=== PATIENT | male | born 1985 | race Caucasian/White ===

== ENCOUNTER 2022-09-22 14:01 | Inpatient (IN) | payer MEDICAID, OTHER ==
[~2022-09-22] VITALS: Ht 165.1 cm; Wt 77.1 kg
[2022-09-22 14:02] VITALS: BP 112/80
--- NOTE | 2022-09-22 14:02 | NUR ---
pt placed in bed 6 at 13:56 by [facility]
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
--- NOTE | 2022-09-22 14:21 | NUR ---
Patient being evaluated by DR TURNER at bedside.
[2022-09-22] MEDS ORDERED: LORazepam 2 MG/ML VIAL IVP ONE ×2 (14:35→18:20)
--- NOTE | 2022-09-22 14:40 | NUR ---
LAB AT BEDSIDE.
[2022-09-22] MEDS: NACL 0.9% 1,000 ML IV SCH ×3 (14:46→19:41)
[2022-09-22 14:48] LABS: BASOPHILS % (AUTO) 0.2 % (0.0-2.0); EOSINOPHILS % (AUTO) 0.1 % (0.0-4.0); HEMATOCRIT 44.7 % (36-52); HEMOGLOBIN 15.1 g/dL (12.0-18.0); LYMPHOCYTES # (AUTO) 0.6 K/uL (2.0-11.5); LYMPHOCYTES % (AUTO) 4.5 % (20.5-51.1); MEAN CORPUSCULAR HEMOGLOBIN 29 pg (27-31); MEAN CORPUSCULAR HGB CONC 34 g/dL (33-37); MEAN CORPUSCULAR VOLUME 85.9 fL (80-94); MONOCYTES # (AUTO) 0.5 K/uL (0.8-1.0); MONOCYTES % (AUTO) 3.7 % (1.7-9.3); NEUTROPHILS # (AUTO) 12.1 K/uL (1.8-7.7); NEUTROPHILS % (AUTO) 91.5 % (42.2-75.2); PLATELET COUNT (AUTO) 297 K/uL (140-450); RED CELL DISTRIBUTION WIDTH 12.9 % (11.6-13.7); WHITE BLOOD COUNT (AUTO) 13.2 K/uL (4.8-10.8)
--- NOTE | 2022-09-22 14:51 | NUR ---
X-Ray at bedside.
[2022-09-22 15:17] LABS: ANION GAP 11.2 (8-16); ASPARTATE AMINOTRANSFERASE 56 U/L (15-37); CARBON DIOXIDE 27.6 mmol/L (21-32); CHLORIDE 96 mmol/L (98-107); CREATININE 0.8 mg/dL (0.6-1.3); GFR ARICAN-AMERICAN 141 mL/min (>90); GLUCOSE 102 mg/dL (74-106); LIPASE 85 U/L (73-393); POTASSIUM 4.8 mmol/L (3.5-5.1); SODIUM SERUM 130 mmol/L (136-145); TOTAL BILIRUBIN 1.1 mg/dL (0.0-1.0); UREA NITROGEN, BLOOD 13 mg/dL (7-18)
[2022-09-22 15:25] LABS: ACETAMINOPHEN < 0.5 ug/ml (10-30); SALICYLATE < 2.8 mg/dL (2.8-20.0)
--- NOTE | 2022-09-22 16:21 | NUR ---
PATIENT TAKEN TO CT VIA GURNEY.
[2022-09-22] MEDS ORDERED: HALOPERIDOL IM 5 MG/ML VIAL ONE (16:34)
[2022-09-22] MEDS ORDERED: diphenhydrAMINE 50 MG/ML VIAL ONE (16:34)
[2022-09-22] MEDS ORDERED: diphenhydrAMINE 50 MG/ML VIAL IVP ONE (16:35)
[2022-09-22] MEDS ORDERED: LORazepam 2 MG/ML VIAL IM/IVP ONE (16:35)
[2022-09-22] MEDS ORDERED: HALOPERIDOL IM 5 MG/ML VIAL IM ONE (16:35)
[2022-09-22] MEDS ORDERED: LORazepam 2 MG/ML VIAL ONE (16:35)
--- NOTE | 2022-09-22 16:52 | NUR ---
PATIENT RETURNED FROM CT.
--- NOTE | 2022-09-22 16:57 | NUR ---
PT COMBATIVE AND AGITATED IN CT MEDICATED PER ORDER. REMAINS STACH ON MONITOR. IN [address] DR TURNER AWARE
[2022-09-22] MEDS ORDERED: NIAC500T30 GT (17:16)
[2022-09-22] MEDS ORDERED: LACT-103 PO (17:16)
[2022-09-22] MEDS ORDERED: VIT500LI PO (17:16)
[2022-09-22] MEDS ORDERED: APIX5TAB4 GT (17:16)
[2022-09-22] MEDS ORDERED: TAMS0.4C96 PO (17:16)
[2022-09-22] MEDS ORDERED: SCOP0.333 TP (17:16)
[2022-09-22] MEDS ORDERED: HYDR-5080 PO (17:16)
[2022-09-22] MEDS ORDERED: FERR75LI22 PO (17:16)
[2022-09-22] MEDS ORDERED: KEP500L GT (17:16)
[2022-09-22] MEDS ORDERED: MULT-2253 GT (17:16)
[2022-09-22] MEDS ORDERED: LOSA100T2 PO (17:16)
[2022-09-22 17:25] LABS: BILIRUBIN,URINE NEGATIVE (NEGATIVE); BLOOD, URINE TRACE-I (NEGATIVE); COLOR,URINE YELLOW (YELLOW); LEUKOCYTE ESTERASE ,URINE TRACE (NEGATIVE); NITRITE, URINE NEGATIVE (NEGATIVE); PH,URINE 6.5 (5.0-9.0); UGLUCOSE NEGATIVE (NEGATIVE)
[2022-09-22 17:26] LABS: APPEARANCE,URINE HAZY (CLEAR)
[2022-09-22] MEDS ORDERED: NACL 0.9% 1,000 ML IV SCH (17:40)
[2022-09-22 17:47] LABS: RBC,URINE 0-5 /HPF (0-5)
[2022-09-22 17:57] LABS: BARBITURATE, URINE NEGATIVE ng/ml (NEG <=200); BENZODIAZEPINE, URINE NEGATIVE ng/mL (NEG <=200)
[2022-09-22 17:58] LABS: CANNABINOID, URINE NEGATIVE ng/mL (NEG <=50); COCAINE, URINE NEGATIVE ng/mL (NEG <=300); OPIATE, URINE NEGATIVE ng/mL (NEG <=2000); PHENCYCLIDINE SCREEN,URINE NEGATIVE ng/mL (NEG <=25)
--- NOTE | 2022-09-22 18:19 | NUR ---
PT RESTING IN [facility] REMAINS STACH ON MONITOR. SAFETY MAINTAINED
--- NOTE | 2022-09-22 18:32 | NUR ---
SWABBED AND SENT TO LAB
[2022-09-22] MEDS ORDERED: DOCUSATE SODIUM 100 MG GELCAP PO PRN (19:25)
[2022-09-22] MEDS ORDERED: ZOLPIDEM 5 MG TAB PO PRN (19:25)
[2022-09-22] MEDS ORDERED: guaiFENesin DM 200/20 MG-10 ML 10 ML UDC PO PRN (19:25)
[2022-09-22] MEDS ORDERED: HYDROcodone/APAP 7.5/325 MG 1 TAB PO PRN (19:25)
[2022-09-22] MEDS ORDERED: ONDANSETRON 4 MG/2 ML VIAL IM/IVP PRN (19:25)
--- NOTE | 2022-09-22 19:36 | NUR ---
SPOKE W/ DR BEVERLEY DAILEY TO DO ROUTINE EEG [facility] WAS CONTACTED AND LEFT VM FOR SCHED PENDING CALL BACK FROM [facility]
[2022-09-22] MEDS ORDERED: levoFLOXacin 750 MG TAB PO SCH (19:40)
[2022-09-22 20:09] LABS: FREE T4 (FREE THYROXINE) 0.83 ng/dL (0.76-1.46); MAGNESIUM 1.4 mg/dL (1.8-2.4); PHOSPHORUS 1.7 mg/dL (2.5-4.9); THYROID STIMULATING HORMONE 1.74 uIU/mL (0.34-3.74)
--- NOTE | 2022-09-22 20:31 | NUR ---
LAB AT BEDSIDE
[2022-09-22 20:55] VITALS: BP 108/49
--- NOTE | 2022-09-22 20:55 | NUR ---
RECEIVED REPORT FROM ER NURSE NAYLA FOR CONTINUITY OF CARE. PATIENT IS SEDATED AND UNAROUSABLE UPON ARRIVAL TO THE UNIT. PATIENT WAS MEDICATED WITH 3 DOSES OF ATIVAN, DOSE OF HALDOL AND BENADRYL A FEW HOURS BEFORE ARRIVING ON THE UNIT. IV IS A 20G RAC, RUNNING NS 150. PATIENT IS LYING SUPINE, ASLEEP. BED IS IN LOWEST POSITION, WHEELS LOCKED, CALL LIGHT IN PLACE. WILL CONTINUE TO OBSERVE PATIENT.
[2022-09-22] MEDS: levETIRAcetam 500 MG TAB PO SCH (22:00)
--- NOTE | 2022-09-22 22:08 | NUR ---
PATIENT WAS MEDICATED WITH ATIVAN AND HALDOL IN ER PER ER NURSE NAYLA. UNABLE TO WAKE UP PATIENT. PATIENT'S BREATHING IS NORMAL WITH SYMMETRICAL RISE AND FALL OF CHEST. PATIENT HAS A 101.1 DEGREE FEVER. APPLIED ICE PACKS TO PATIENT. PATIENT IS STILL SLEEPING; UNABLE TO WAKE PATIENT UP TO ADMINISTER TYLENOL FOR FEVER OR 2100 K[address]A. WILL CONTINUE TO OBSERVE PATIENT.
[2022-09-22 22:18] LABS: PROTHROMBIN TIME 10.4 secs (10.8-13.4)
[2022-09-23] VITALS: BP 102/43
--- NOTE | 2022-09-23 01:47 | NUR ---
PATIENT'S FEVER HAS GONE DOWN TO 100.3 FROM 101.1. ATTEMPTED TO WAKE PATIENT AGAIN WITH NO SUCCESS. APPLIED NEW ICE PACK TO PATIENT; COVERS ARE STILL OFF OF PATIENT. BREATHING IS NORMAL WITH SYMMETRICAL RISE AND FALL OF CHEST. WOMAN CALLED STATING THAT SHE WAS PATIENT'S AT 0130. SAID HER NAME WAS RENEA BROOKS AND PROVIDED ME WITH A PHONE NUMBER OF [phone]. MS. BROOKS WAS UNABLE TO PROVIDE PAST MEDICAL HISTORY, BUT DID INFORM ME THAT HER AND THE PATIENT WERE HOMELESS; LIVING ON THE [place] OF [place]. INFORMED HER THAT THE PATIENT WAS SLEEPING, BUT I WOULD LET HIM KNOW SHE CALLED WHEN HE WAKES UP. SHE THANKED ME AND HUNG UP. WILL CONTINUE TO OBSERVE PATIENT.
[2022-09-23] MEDS: NACL 0.9% 1,000 ML IV SCH ×4 (02:05→22:10)
[2022-09-23 04:00] VITALS: BP 107/62
--- NOTE | 2022-09-23 06:00 | NUR ---
PATIENT HAD WET HIMSELF AND THE BED. PATIENT WAS CLEANED AND GOWN WAS PLACED ON PATIENT. PATIENT REMAINS UNAROUSABLE; CURSING AND YELLING WHEN HE IS MOVED, BUT REMAINING ASLEEP. WAS INFORMED BY FACILITY REHAB DIRECTOR THAT PATIENT REFUSED MORNING LABS. WILL CONTINUE TO OBSERVE PATIENT.
--- NOTE | 2022-09-23 07:15 | NUR ---
ENDORSED TO DAY SHIFT NURSE CESAR FOR CONTINUITY OF CARE. PATIENT IS STABLE.
[2022-09-23] MEDS: PANTOPRAZOLE 40 MG TABEC PO SCH (09:00)
[2022-09-23] MEDS: levETIRAcetam 500 MG TAB PO SCH ×2 (09:00→22:08)
[2022-09-23 09:15] LABS: RED BLOOD CELL COUNT(AUTO) 4.57 MIL/uL (4.20-6.10)
[2022-09-23 09:22] LABS: HEMATOCRIT 38.5 % (36-52); HEMOGLOBIN 13.2 g/dL (12.0-18.0); MEAN CORPUSCULAR HEMOGLOBIN 29 pg (27-31); MEAN CORPUSCULAR HGB CONC 34 g/dL (33-37); MEAN CORPUSCULAR VOLUME 84.1 fL (80-94); PLATELET COUNT (AUTO) 261 K/uL (140-450); RED CELL DISTRIBUTION WIDTH 13.1 % (11.6-13.7)
[2022-09-23 09:23] LABS: ANION GAP 11.7 (8-16); CARBON DIOXIDE 24.6 mmol/L (21-32); CREATININE 0.9 mg/dL (0.6-1.3); POTASSIUM 3.3 mmol/L (3.5-5.1)
[2022-09-23 10:21] LABS: WHITE BLOOD COUNT (AUTO) 25.3 K/uL (4.8-10.8)
[2022-09-23 10:22] LABS: LYMPHOCYTES % (MANUAL) 4 % (20-46); MONOCYTES % (MANUAL) 4 % (5-12)
--- NOTE | 2022-09-23 10:34 | NUR ---
PATIENT HAS BEEN SCREENED AND CATEGORIZED LOW NUTRITION RISK. PATIENT WILL BE SEEN WITHIN 7 DAYS OF ADMISSION. 09/29/[address]
[2022-09-23] MEDS ORDERED: LEVOFLOXACIN 750 MG/D5W PREMIX 150 ML IV ONE (10:45)
--- NOTE | 2022-09-23 11:10 | NUR ---
DC PLANNING ATTEMPTED TO MEET PT AT BEDSIDE HOWEVER, PT WOULD NOT WAKE TO NAME BEING CALLED. OUTREACHED TO PTS EMERGENCY CONTACT [facility] [phone] HOWEVER. NO ANSWER.
[2022-09-23] MEDS: LEVOFLOXACIN 750 MG/D5W PREMIX 150 ML IV SCH (11:38)
[2022-09-23 12:00] VITALS: BP 122/77
--- NOTE | 2022-09-23 14:06 | NUR ---
PATIENT SIGNIFICANT OTHER , RENEA, NOTIFICATION TO VISIT AT BEDSIDE INSTEAD OF IN PATIENT BED. SHE VERBALIZES "I WOULD LET OTHERS VISIT IN BED BECAUSE I HAVE A HEART.
[2022-09-23 16:00] VITALS: BP 105/72
[2022-09-23] MEDS: POTASSIUM CHLORIDE 10 MEQ TABER PO PRN (17:32)
[2022-09-23] MEDS: ACETAMINOPHEN 325 MG TAB PO PRN (17:32)
--- NOTE | 2022-09-23 17:33 | NUR ---
PATIENT VERBALIZES HE WANTS TO LEAVE. DISCUSSION ABOUT POSSIBLE INFECTION TREATMENT AND PRESENTATION OF PAPERWORK TO PATIENT FOR LEAVING AGAINST MEDICAL ADVICE.
[2022-09-23] MEDS ORDERED: levoFLOXacin 750 MG TAB PO SCH (21:00)
[2022-09-24] MEDS: NACL 0.9% 1,000 ML IV SCH ×3 (04:17→18:05)
[2022-09-24 06:14] LABS: BASOPHILS % (AUTO) 0.1 % (0.0-2.0); EOSINOPHILS # (AUTO) 0.1 K/uL (0-0.4); EOSINOPHILS % (AUTO) 0.3 % (0.0-4.0); HEMATOCRIT 36.4 % (36-52); HEMOGLOBIN 12.6 g/dL (12.0-18.0); LYMPHOCYTES # (AUTO) 0.5 K/uL (2.0-11.5); LYMPHOCYTES % (AUTO) 2.1 % (20.5-51.1); MEAN CORPUSCULAR HEMOGLOBIN 29 pg (27-31); MEAN CORPUSCULAR HGB CONC 35 g/dL (33-37); MEAN CORPUSCULAR VOLUME 83.4 fL (80-94); MONOCYTES # (AUTO) 1.1 K/uL (0.8-1.0); NEUTROPHILS # (AUTO) 19.9 K/uL (1.8-7.7); NEUTROPHILS % (AUTO) 92.5 % (42.2-75.2); PLATELET COUNT (AUTO) 238 K/uL (140-450); RED BLOOD CELL COUNT(AUTO) 4.37 MIL/uL (4.20-6.10); RED CELL DISTRIBUTION WIDTH 12.8 % (11.6-13.7); WHITE BLOOD COUNT (AUTO) 21.6 K/uL (4.8-10.8)
[2022-09-24 06:18] LABS: ANION GAP 10.6 (8-16); CARBON DIOXIDE 25.1 mmol/L (21-32); CREATININE 0.9 mg/dL (0.6-1.3); POTASSIUM 3.7 mmol/L (3.5-5.1)
[2022-09-24 08:00] VITALS: BP 116/66
[2022-09-24 08:08] LABS: T4 (THYROXINE) 5.7 ug/dL (4.5-12.0)
[2022-09-24] MEDS: levETIRAcetam 500 MG TAB PO SCH ×2 (08:49→20:59)
[2022-09-24] MEDS: PANTOPRAZOLE 40 MG TABEC PO SCH (08:49)
[2022-09-24] MEDS: LEVOFLOXACIN 750 MG/D5W PREMIX 150 ML IV SCH (11:48)
[2022-09-24 12:00] VITALS: BP 93/51
[2022-09-24] MEDS: MUPIROCIN CA NASAL 2% 1GM TUBE NS SCH (14:05)
[2022-09-24] MEDS: CHLORHEXADINE GLUC 2% CLOTH TP SCH (14:05)
[2022-09-24 16:00] VITALS: BP 122/83
[2022-09-24] MEDS ORDERED: VANCOMYCIN PER PHARMACY MC PRN (17:25)
[2022-09-24] MEDS ORDERED: VANCOMYCIN HCL 1,250 MG in DEXTROSE 5% 250 ML IV SCH (20:00)
[2022-09-24] MEDS ORDERED: VANCOMYCIN 1,000 MG VIAL ONE (20:00)
[2022-09-24] MEDS ORDERED: VANCOMYCIN 500 MG VIAL ONE (20:01)
[2022-09-24] MEDS ORDERED: PIPERACILLIN/TAZOBACTAM 3.375 GM in DEXTROSE 5% 50 ML IV SCH (21:00)
[2022-09-24 21:37] VITALS: BP 112/83
[2022-09-25] MEDS: LORazepam 2 MG/ML VIAL IVP PRN ×3 (00:38→21:14)
[2022-09-25 00:43] VITALS: BP 135/92
[2022-09-25] MEDS: NACL 0.9% 1,000 ML IV SCH ×4 (00:46→20:38)
[2022-09-25 04:28] VITALS: BP 131/79
[2022-09-25 06:47] LABS: BASOPHILS % (AUTO) 0.1 % (0.0-2.0); EOSINOPHILS # (AUTO) 0.1 K/uL (0-0.4); EOSINOPHILS % (AUTO) 0.5 % (0.0-4.0); HEMATOCRIT 36.4 % (36-52); HEMOGLOBIN 12.5 g/dL (12.0-18.0); LYMPHOCYTES # (AUTO) 0.7 K/uL (2.0-11.5); LYMPHOCYTES % (AUTO) 3.6 % (20.5-51.1); MEAN CORPUSCULAR HEMOGLOBIN 29 pg (27-31); MEAN CORPUSCULAR HGB CONC 34 g/dL (33-37); MEAN CORPUSCULAR VOLUME 83.2 fL (80-94); MONOCYTES # (AUTO) 1.5 K/uL (0.8-1.0); MONOCYTES % (AUTO) 7.4 % (1.7-9.3); NEUTROPHILS # (AUTO) 17.4 K/uL (1.8-7.7); NEUTROPHILS % (AUTO) 88.4 % (42.2-75.2); PLATELET COUNT (AUTO) 261 K/uL (140-450); RED BLOOD CELL COUNT(AUTO) 4.38 MIL/uL (4.20-6.10); WHITE BLOOD COUNT (AUTO) 19.7 K/uL (4.8-10.8)
[2022-09-25 06:50] LABS: ANION GAP 9.2 (8-16); CARBON DIOXIDE 28.1 mmol/L (21-32); CREATININE 0.9 mg/dL (0.6-1.3); POTASSIUM 3.3 mmol/L (3.5-5.1)
--- NOTE | 2022-09-25 07:42 | NUR ---
NURSES NOTE PATIENT A/OX4 , RECEIVED AT BED SIDE , BED REST , VSS , SINUS RHYTHM ON MONITOR , ON IV FLUID 50CC/H NO COMPLAIN AT THIS TIME , SKIN INTACT SEE SKIN ASSESSMENT , EDUCTION GIVEN ABOUT MEDS , ON REGULAR DIET PAIN MEDS , CARE PLAN , SAFETY ON PLACE , SIDE RAILS UP X3 , BED IN LOWER POSITION , CALL LIGHT WITHIN REACH . STILL UNDER OBSERVE .
[2022-09-25] MEDS: PANTOPRAZOLE 40 MG TABEC PO SCH (08:14)
[2022-09-25] MEDS: levETIRAcetam 500 MG TAB PO SCH ×2 (08:14→20:42)
[2022-09-25 08:45] VITALS: BP 107/57
[2022-09-25] MEDS ORDERED: VANCOMYCIN HCL 1.25 GM in DEXTROSE 5% 250 ML IV SCH (09:00)
[2022-09-25] MEDS: VANCOMYCIN 1.25GM PREMIX 250 ML IV SCH ×2 (09:21→20:39)
[2022-09-25] MEDS: ACETAMINOPHEN 325 MG TAB PO PRN (10:14)
[2022-09-25] MEDS: POTASSIUM CHLORIDE 10 MEQ TABER PO PRN (10:54)
[2022-09-25 12:56] VITALS: BP 116/60
[2022-09-25] MEDS: MUPIROCIN CA NASAL 2% 1GM TUBE NS SCH (14:00)
[2022-09-25] MEDS: CHLORHEXADINE GLUC 2% CLOTH TP SCH (14:00)
--- NOTE | 2022-09-25 15:30 | NUR ---
NURSES NOTE PATIENT REFUSED MONITOR , PT TOKE IT OF AND THOUGHT ON FLOOR
--- NOTE | 2022-09-25 16:00 | NUR ---
NURSES NOTE PATIENT A/OX4 , VSS , STILL ON IV FLUID 50CCN/S0.9% , ON REGULAR DIET , INCONTINENT , CONDOM CATH REMOVED BY PATIENT , SAFETY PROACTION ON PLACE , SEIZURE PROACTION ON , NO NEW FOR HIM , LEFT LEG CELLULITIS STILL UNDER OBSERVE .
[2022-09-25 17:00] VITALS: BP 113/68
--- NOTE | 2022-09-25 18:59 | NUR ---
SHIFT REPORT GIVEN TO DANTE NOBLE ALL HIS QUESTION ANSWER .
--- NOTE | 2022-09-25 20:45 | NUR ---
PT WAS GIVEN AMBIEN PER PT REQUEST. PT HAD NO WATER SO NURSE HELD ONTO MEDS IN CUP (SPAT OUT INTO CUP BY PT), RETRIEVED WATER, THEN ADMINISTERED MEDS W WATER.
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
[2022-09-26] MEDS: LORazepam 2 MG/ML VIAL IVP PRN (02:31)
--- NOTE | 2022-09-26 02:36 | NUR ---
PT INCONTINENT OF URINE. PT BED AND GOWN CHANGED. PT GIVEN URINAL. PT GIVEN INSTRUCTIONS ON USING CALL LIGHT FOR NURSE TO EMPTY URINAL. PT REQUESTING AMBIEN, BUT WAS REMINDED HE ALREADY RECEIVED A DOSE. PT THEN GIVEN ATIVAN TO CALM.
[2022-09-26] MEDS: NACL 0.9% 1,000 ML IV SCH ×2 (03:25→10:05)
[2022-09-26 06:25] LABS: BASOPHILS % (AUTO) 0.2 % (0.0-2.0); EOSINOPHILS # (AUTO) 0.1 K/uL (0-0.4); EOSINOPHILS % (AUTO) 0.8 % (0.0-4.0); HEMATOCRIT 39.2 % (36-52); HEMOGLOBIN 13.1 g/dL (12.0-18.0); LYMPHOCYTES # (AUTO) 1.4 K/uL (2.0-11.5); LYMPHOCYTES % (AUTO) 8.4 % (20.5-51.1); MEAN CORPUSCULAR HEMOGLOBIN 29 pg (27-31); MEAN CORPUSCULAR HGB CONC 33 g/dL (33-37); MEAN CORPUSCULAR VOLUME 85.9 fL (80-94); MONOCYTES # (AUTO) 1.7 K/uL (0.8-1.0); NEUTROPHILS # (AUTO) 13.5 K/uL (1.8-7.7); NEUTROPHILS % (AUTO) 80.6 % (42.2-75.2); PLATELET COUNT (AUTO) 309 K/uL (140-450); RED BLOOD CELL COUNT(AUTO) 4.57 MIL/uL (4.20-6.10); RED CELL DISTRIBUTION WIDTH 13.3 % (11.6-13.7); WHITE BLOOD COUNT (AUTO) 16.8 K/uL (4.8-10.8)
[2022-09-26 06:49] LABS: ANION GAP 9.7 (8-16); CARBON DIOXIDE 25.8 mmol/L (21-32); CREATININE 0.8 mg/dL (0.6-1.3); POTASSIUM 3.5 mmol/L (3.5-5.1)
[2022-09-26 08:00] VITALS: BP 102/38
[2022-09-26] MEDS: PANTOPRAZOLE 40 MG TABEC PO SCH (08:56)
[2022-09-26] MEDS: levETIRAcetam 500 MG TAB PO SCH (08:57)
[2022-09-26] MEDS: VANCOMYCIN 1.25GM PREMIX 250 ML IV SCH (08:57)
[2022-09-26] MEDS ORDERED: MUPI2CRE22 NS (10:30)
[2022-09-26] MEDS ORDERED: KEP500 PO (10:30)
[2022-09-26] MEDS ORDERED: CHLO118S2 TP (10:30)
[2022-09-26] MEDS ORDERED: CIPR500T4 PO (10:30)
[2022-09-26] MEDS ORDERED: VANCOMYCIN 1.25GM PREMIX 250 ML IV SCH (17:00)
== END 2022-09-26 14:50 | disposition home or self-care (01) | DRG 351 ==
LOC: MED 14:01 → MTU 18:54
PROVIDERS: ADMIT Family Medicine; ATTEND Family Medicine
DX: M62.82 Rhabdomyolysis (principal); G92.8 Other toxic encephalopathy; E83.51 Hypocalcemia; E87.1 Hypo-osmolality and hyponatremia; E87.6 Hypokalemia; D72.829 Elevated white blood cell count, unspecified; G40.909 Epilepsy, unspecified, not intractable, without status epilepticus; M79.605 Pain in left leg; Z20.822 Contact with and (suspected) exposure to COVID-19; M25.512 Pain in left shoulder; R00.0 Tachycardia, unspecified; V89.2XXA Person injured in unspecified motor-vehicle accident, traffic, initial encounter; Z88.0 Allergy status to penicillin; T43.655A Adverse effect of methamphetamines, initial encounter; Z79.899 Other long term (current) drug therapy; Z79.2 Long term (current) use of antibiotics; Y93.89 Activity, other specified; Y92.89 Other specified places as the place of occurrence of the external cause; Y99.8 Other external cause status
CPT/HCPCS: 36415; 70450; 71045; 71260; 72125; 72128; 72131; 73030; 73562; 80048; 80053; 80202; 80305; 81001; 82150; 82550; 82553; 83036; 83605; 83690; 83735; 83880; 84100; 84436; 84439; 84443; 84479; 84484; 85025; 85610; 85730; 87040; 87081; 87086; 93005; 93971; 95816; 96361; 96372; 96374; 96375; 96376; 99285; G0480; G0482; J1200; J1630; J1956; J2060; J3370; J3372; J7060; Q0092; Q9967